=== PATIENT | female | born 1985 | race Native Hawaiian/Other Pacific Islander ===

== ENCOUNTER 2017-02-20 09:43 | Outpatient (CLI) | payer OTHER | END 2017-02-20 12:00 | disposition home or self-care (01) | LOC: RAD 09:43 | DX: M25.572 Pain in left ankle and joints of left foot (principal) ==

== ENCOUNTER 2017-02-27 10:17 | Outpatient (CLI) | payer OTHER | END 2017-02-27 19:08 | disposition home or self-care (01) | LOC: CT 10:17 | DX: M25.572 Pain in left ankle and joints of left foot (principal) ==

== ENCOUNTER 2017-04-10 16:05 | Outpatient (CLI) | payer OTHER | END 2017-04-10 20:06 | disposition home or self-care (01) | LOC: RESP 16:05 | DX: G56.03 Carpal tunnel syndrome, bilateral upper limbs (principal) | CPT/HCPCS: 95911 ==

== ENCOUNTER 2017-09-03 08:57 | Outpatient (CLI) | payer OTHER | END 2017-09-03 10:00 | disposition home or self-care (01) | LOC: LABW 08:57 | DX: D64.89 Other specified anemias (principal); M02.89 Other reactive arthropathies, multiple sites; Z79.899 Other long term (current) drug therapy; Z51.81 Encounter for therapeutic drug level monitoring | CPT/HCPCS: 86200 ==

== ENCOUNTER 2020-05-30 13:59 | Outpatient (CLI) | payer OTHER | END 2020-05-30 21:00 | disposition home or self-care (01) | LOC: LAB 13:59 | DX: U07.1 COVID-19 (principal); Z20.828 Contact with and (suspected) exposure to other viral communicable diseases | CPT/HCPCS: 87635; G2023; U0003 ==

== ENCOUNTER 2020-06-12 09:11 | Outpatient (CLI) | payer OTHER | END 2020-06-12 19:10 | disposition home or self-care (01) | LOC: LAB 09:11 | DX: Z20.828 Contact with and (suspected) exposure to other viral communicable diseases (principal) | CPT/HCPCS: 87635; G2023; U0003 ==

== ENCOUNTER 2021-06-15 11:51 | Outpatient (CLI) | payer OTHER | END 2021-06-15 22:01 | disposition home or self-care (01) | LOC: LAB 11:51 | PROVIDERS: ATTEND Family Medicine | DX: Z20.822 Contact with and (suspected) exposure to COVID-19 (principal) | CPT/HCPCS: 87635; U0003 ==